=== PATIENT | male | born 1970 | race Caucasian/White ===

== ENCOUNTER → 2024-02-22 12:37 | Outpatient (CLI) | payer OTHER, SELFPAY ==
--- NOTE | 2024-02-22 12:39 | DI.MRI.S_ITS ---
PROCEDURE: MR CHEST WO/W CON INDICATIONS: disorder of bone density TECHNIQUE: Noncontrast coronal T1 spin echo and STIR, sagittal T1 spin echo with fat saturation and STIR, axial T1 spin echo and T2 fast spin echo with fat saturation. After the administration of contrast, axial/sagittal/coronal T1 spin echo with fat saturation through the chest, focused on the right clavicle . COMPARISON: Outside Facility, CT, CT LUNG LOW DOSE SCREENING, 02/11/2024, 11:04. FINDINGS: Image quality: Excellent. Corresponding to the CT findings, there is marrow edema at the right medial clavicle and manubrium (7/13). There is developing oteosclerosis of the left 1st distal rib (7/16). There is osteosclerosis of the right 1st distal rib (7/10). Small erosions are present at the the inferior margin of the right medial clavicular head (7/9). There is a small amount of synovial fluid bilateral sternomanubrial joints (7/15). There is corresponding enhancement of the sternomanubrial joints and perifascial enhancement (11/14; 13/18). There is no adjacent lymphadenopathy. Overall muscle bulk is preserved. The dominant flow voids are preserved. There is no abnormal mural thickening of the visualized esophagus. There is no enhancing mass in the visualized trachea. IMPRESSION: Overall, osseous findings of osteitis, hyperostosis, and synovitis at the sternomanubrial and bilateral 1st costomanubrial junctions. The differential diagnosis for this constellation of findings would include SAPHO syndrome (synovitis, acne, posterior low sys, hyperostosis, osteitis) vs chronic infection. Please correlate with the patient's history and consider serum testing for HLA B27 serology. Dictated by: Kole Alvarez M.D. on 02/22/2024 at 21:46 Approved by: Kole Alvarez M.D. on 02/22/2024 at 22:14
== END ==
PROVIDERS: Referring Provider Nurse Practitioner Family; Visit Provider Nurse Practitioner Family
DX: M86.9 Osteomyelitis, unspecified (principal); M85.88 Other specified disorders of bone density and structure, other site; M65.98 Unspecified synovitis and tenosynovitis, other site
CPT/HCPCS: 71552; A9579